=== PATIENT | female | born 1985 | race African-American/Black ===

== ENCOUNTER 2018-01-11 09:26 | Emergency (ER) | payer SELFPAY ==
[~2018-01-11] VITALS: Ht 170.2 cm; Wt 65.0 kg
[2018-01-11] MEDS ORDERED: IBUPROFEN 600MG TABLET PO ONE (10:30)
[2018-01-11 11:58] VITALS: BP 110/71
[2018-01-11] MEDS ORDERED: ACETAMINOPHEN WITH CODEINE 300/30MG TABLET PO ONE (12:00)
== END 2018-01-11 12:00 | disposition home or self-care (01) ==
LOC: ER 09:26
DX: S09.90XA Unspecified injury of head, initial encounter (principal); Y08.89XA Assault by other specified means, initial encounter; Y93.89 Activity, other specified; Y92.89 Other specified places as the place of occurrence of the external cause; Y99.8 Other external cause status
CPT/HCPCS: 70450; 99284

== ENCOUNTER 2018-07-16 06:05 | Emergency (ER) | payer SELFPAY ==
[~2018-07-16] VITALS: Ht 165.1 cm; Wt 64.0 kg
[2018-07-16] MEDS ORDERED: LIDOCAINE HCL 1% 20ML VIAL (Pyxis) INJ INFIL ONE (07:00)
[2018-07-16] MEDS ORDERED: KETOROLAC 60MG/2ML VIAL IM ONE (07:00)
[2018-07-16] MEDS ORDERED: TETANUS, DIPHTHERIA, PERTUSSIS VAC/PF 0.5ML (>7YR OLD) IM ONE (07:15)
[2018-07-16 09:38] VITALS: BP 106/63
== END 2018-07-16 09:40 | disposition home or self-care (01) ==
LOC: ER 06:05
DX: S05.41XA Penetrating wound of orbit with or without foreign body, right eye, initial encounter (principal); S09.8XXA Other specified injuries of head, initial encounter; Y04.0XXA Assault by unarmed brawl or fight, initial encounter; T71.9XXA Asphyxiation due to unspecified cause, initial encounter; Y93.89 Activity, other specified; Y92.018 Other place in single-family (private) house as the place of occurrence of the external cause
CPT/HCPCS: 12011; 70450; 90471; 90715; 96372; 99284; J1885; J3490